=== PATIENT | male | born 1955 | race Caucasian/White ===

== ENCOUNTER 2018-01-28 04:07 | Emergency (ER) | payer BC ==
[2018-01-28] MEDS ORDERED: ASPIRIN 81 MG TABLET, CHEWABLE PO ONE (04:27)
[2018-01-28] MEDS ORDERED: NITROGLYCERIN 0.4 MG/TAB 25 TAB/BOTTLE SL PRN (04:35)
--- NOTE | 2018-01-28 04:35 | ER Document Report ---
Addendum entered and electronically signed by ERICA RÍOS DO 01/28/18 06:28 : Course - Re-evaluation Re-evalutation: 01/28/18 06:27 On reevaluation patient continues to do very well. His heart rate is 75 with sinus rhythm on a monitor. Blood pressure is 110/93. Pulse ox 100% on room air. I feel patient is stable for transport at this time. They are flying. They said this should be here in 30 minutes. Will continue closely monitor the patient. He is on heparin drip and amiodarone drip at this time. Dictation of this chart was performed using voice recognition software; therefore, there may be some unintended grammatical errors. - Vital Signs Vital signs: Temp Pulse Resp BP Pulse Ox 98.0 F 69 16 125/101 H 100 01/28/18 04:17 01/28/18 04:17 01/28/18 05:34 01/28/18 05:34 01/28/18 05:34 - Laboratory Result Diagrams: 01/28/18 04:50 01/28/18 04:50 Laboratory results interpreted by me: 01/28/18 01/28/18 04:50 04:50 RDW 14.4 H Seg Neuts % (Manual) 23 L Lymphocytes % (Manual) 66 H Metamyelocytes % 1 H Abs Lymphs (Manual) 5.4 H Sodium 146.2 H Potassium 2.6 L* Glucose 147 H Alkaline Phosphatase 27 L Original Note: ED General - General TRAVEL OUTSIDE OF THE [place] IN LAST 30 DAYS: No <STEVIE BOUDREAUX - Last Filed: 01/28/18 04:51> <ERICA RÍOS - Last Filed: 01/28/18 06:18> - General Chief Complaint: Chest Pain Stated Complaint: CHEST PAIN Time Seen by Provider: 01/28/18 04:27 - HPI Notes: Patient is a 62-year-old male with a history of hypertension and hypercholesterolemia who presents to the ED complaining of midsternal chest pain with an incident of radiating to his left arm that began about 1 hour ago. Patient states that he was diaphoretic at that time, but his symptoms have since improved. Patient states that he just has a dull ache remaining, but otherwise states that "I almost feel back to normal." Patient states that nothing improved or worsened his symptoms that he is aware of. Patient states that he is still ambulatory without any dyspnea on exertion or worsening pain. He has not had any prolonged immobilization, recent surgery/trauma, previous DVT /PE, cancer history, hormone use, or smoking history. He denies any other significant cardiopulmonary medical history or strong family history. He has been eating and drinking without any difficulties as well. Patient states that he has been taking his blood pressure medications, and usually takes him to morning and evening. Denies any headache, fever, URI, sore throat, palpitations , syncope, cough, shortness of breath, wheeze, dyspnea, abdominal pain, nausea/ vomiting/diarrhea, urinary retention, dysuria, hematuria, back pain, loss of control of bowel or bladder, numbness/tingling, or rash. (STEVIE BOUDREAUX) - Related Data Allergies/Adverse Reactions: No Known Allergies Allergy (Verified 01/28/18 05:10) Past Medical History - Social History Smoking Status: Never Smoker Family History: Reviewed & Not Pertinent <STEVIE BOUDREAUX - Last Filed: 01/28/18 04:51> Review of Systems - Review of Systems -: Yes All other systems reviewed and negative <STEVIE BOUDREAUX - Last Filed: 01/28/18 04:51> Physical Exam <STEVIE BOUDREAUX - Last Filed: 01/28/18 04:51> <ERICA RÍOS - Last Filed: 01/28/18 06:18> - Vital signs Vitals: Temp Pulse Resp BP Pulse Ox 98.0 F 69 20 171/110 H 99 01/28/18 04:17 01/28/18 04:17 01/28/18 04:17 01/28/18 04:17 01/28/18 04:17 - Notes Notes: PHYSICAL EXAMINATION: GENERAL: Well-appearing, well-nourished and in no acute distress. HEAD: Atraumatic, normocephalic. EYES: Pupils equal round and reactive to light, extraocular movements intact, sclera anicteric, conjunctiva are normal. ENT: Nares patent and without discharge. oropharynx clear without exudates. No tonsilar hypertrophy or erythema. Moist mucous membranes. NECK: Normal range of motion, supple without lymphadenopathy LUNGS: Breath sounds clear to auscultation bilaterally and equal. No wheezes rales or rhonchi. HEART: Regular rate and rhythm without murmurs, rubs, gallops. ABDOMEN: Soft, nontender, nondistended abdomen. No guarding, no rebound. No masses appreciated. Normal bowel sounds present. No CVA tenderness bilaterally. Musculoskeletal: FROM to passive/active. Strength 5+/5. Extremities: No cyanosis, clubbing, or edema b/l. Peripheral pulses 2+. Capillary refill less than 3 seconds. NEUROLOGICAL: Cranial nerves grossly intact. Normal speech, normal gait. Normal sensory, motor exams PSYCH: Normal mood, normal affect. SKIN: Warm, Dry, normal turgor, no rashes or lesions noted. (STEVIE BOUDREAUX) Course <STEVIE BOUDREAUX - Last Filed: 01/28/18 04:51> - Laboratory Result Diagrams: 01/28/18 04:50 01/28/18 04:50 <ERICA RÍOS - Last Filed: 01/28/18 06:18> - Re-evaluation Re-evalutation: 01/28/18 04:51 Within 2minutes of leaving his room, pt went into V-tach and unresponsive. Dr. Ríos and I immediately went to his room where Dr. Ríos ran the code. (STEVIE BOUDREAUX) 01/28/18 04:53 Patient was initially seen by Stevie FIELDS. Patient presents because an episode of chest pain at home with diaphoresis which resolved. Patient was looking well and then suddenly went to ventricular tachycardia. Immediately went into the room with the patient went to ventricular tachycardia. He was having agonal breathing was pulseless. Immediately started CPR. Placed for pads on him and defibrillated him one time. Then restarted CPR. Approximately 2 minutes after initial defibrillation patient started to awaken and he was in sinus bradycardia. Strong pulse. Patient continued in sinus bradycardia therefore gave half milligram of epinephrine. Patient then went to a bigeminy type rhythm. Patient given 150 mg of amiodarone bolus and started him no drip. Patient is now in normal sinus rhythm without PVCs and is awake and talking and alert. Repeat EKG does not show evidence of ST elevation at this time. Patient currently denies any chest pain other than some pain over his left ribs which is reproducible palpation most likely related to the chest compressions that were just performed. Blood work is being obtained. We will keep the patient to monitor. I will call tertiary facility that has interventional cardiology for transfer. 01/28/18 05:09 I spoke with Apolinar Thompson, hospitalist at [facility], who agrees to accept the patient for transfer. He requested to give the patient Lipitor 80 mg and start him on a heparin drip as well and continue the amiodarone drip. We will arrange transport soon as we get bed assignment. Dictation of this chart was performed using voice recognition software; therefore, there may be some unintended grammatical errors. (ERICA RÍOS) - Vital Signs Vital signs: Temp Pulse Resp BP Pulse Ox 98.0 F 69 16 125/101 H 100 01/28/18 04:17 01/28/18 04:17 01/28/18 05:34 01/28/18 05:34 01/28/18 05:34 - Laboratory Laboratory results interpreted by me: 01/28/18 04:50 Sodium 146.2 H Potassium 2.6 L* Glucose 147 H Alkaline Phosphatase 27 L - EKG Interpretation by Me Additional EKG results interpreted by me: 01/28/18 04:57 EKG #1 is reviewed and interpreted by me. EKG shows sinus rhythm with rate of [address] segment elevation or depression. No ischemic T-wave inversions. NH interval, QRS duration, QTc intervals are within normal range. EKG #2 is reviewed and interpreted by me. EKG #2 is post cardiac arrest. EKG shows sinus rhythm with rate of [address] segment elevation or depression. No ischemic T-wave inversions. NH interval, QRS duration, QTc intervals are within normal range. (ERICA RÍOS) Procedures - Additional Procedures IO placement Additional Procedures: IO insertion <ERICA RÍOS - Last Filed: 01/28/18 06:18> - Additional Procedures IO placement Notes: 01/28/18 06:17 I-O inserted in the left anterior tibia for IV access patient did not have any peripheral axis and the patient went into cardiac arrest. I-O flushed well after placement. No complications (ERICA RÍOS) Critical Care Note <STEVIE BOUDREAUX - Last Filed: 01/28/18 04:51> - Critical Care Note Total time excluding time spent on procedures (mins): 40 <ERICA RÍOS - Last Filed: 01/28/18 06:18> - Critical Care Note Comments: Critical care time for this patient is approximately 40 minutes not including time spent on procedures due to management of cardiac arrest, management of V. tach, postresuscitation care. (ERICA RÍOS) Discharge <STEVIE BOUDREAUX - Last Filed: 01/28/18 04:51> <ERICA RÍOS - Last Filed: 01/28/18 06:18> - Discharge Clinical Impression: Ventricular tachycardia, Cardiac arrest, Hypokalemia Chest pain Qualifiers: Chest pain type: unspecified Qualified Code(s): R07.9 - Chest pain, unspecified Condition: Stable Disposition: [facility]
[2018-01-28] MEDS ORDERED: DEXTROSE 5%-WATER 500 ML with AMIODARONE HCL 900 MG IV PRN ×2 (04:50)
[2018-01-28] MEDS ORDERED: AMIODARONE HCL 150 MG in DEXTROSE 5%-WATER 100 ML IV ONE (04:50)
[2018-01-28] MEDS ORDERED: EPINEPHRINE INJ 1 MG/10 ML DISP.SYRIN IV ONE (04:52)
--- NOTE | 2018-01-28 04:53 | ER Document Report ---
ED General - General Chief Complaint: Chest Pain Stated Complaint: CHEST PAIN Time Seen by Provider: 01/28/18 04:27 TRAVEL OUTSIDE OF THE [place] IN LAST 30 DAYS: No Past Medical History - Social History Smoking Status: Never Smoker Family History: Reviewed & Not Pertinent Patient has suicidal ideation: No Patient has homicidal ideation: No Renal/ Medical History: Denies: Hx Peritoneal Dialysis Physical Exam - Vital signs Vitals: Temp Pulse Resp BP Pulse Ox 98.0 F 69 20 171/110 H 99 01/28/18 04:17 01/28/18 04:17 01/28/18 04:17 01/28/18 04:17 01/28/18 04:17 Course - Vital Signs Vital signs: Temp Pulse Resp BP Pulse Ox 98.0 F 69 20 171/110 H 100 01/28/18 04:17 01/28/18 04:17 01/28/18 04:17 01/28/18 04:17 01/28/18 04:27 - EKG Interpretation by Me Additional EKG results interpreted by me: 01/28/18 04:52 01/28/18 04:57
[2018-01-28] MEDS ORDERED: HEPARIN SODIUM,PORCINE/D5W 25,000 UNIT/250 ML RTUINJ IV PRN (05:08)
[2018-01-28] MEDS ORDERED: ATORVASTATIN CALCIUM 80 MG TABLET PO ONE (05:08)
[2018-01-28] MEDS ORDERED: HEPARIN SOD (PORCINE) 1,000 UNIT/ML 10 ML VIAL IV ONE (05:08)
--- NOTE | 2018-01-28 05:18 | RADIOLOGY REPORT (SQ) ---
Clinical History : chest pain , Exam : Portable AP view of the chest 01/28/2018 4:27 AM CDT Comparisons : none Findings : The lungs are clear without focal consolidation or pleural effusion. The heart is normal in size. The mediastinal contours are normal in appearance. The thoracic spine is age appropriate. The shoulders are unremarkable. Limited evaluation of the upper abdomen demonstrates no gross abnormalities. Impression: No acute cardiopulmonary disease
[2018-01-28 05:20] LABS: INTERNATIONAL RATION (INR) 0.94; PROTHROMBIN TIME 13.1 SEC (11.4-15.4)
[2018-01-28 05:35] LABS: ALANINE AMINOTRANSFERASE 60 U/L (21-72); ALBUMIN 4.3 g/dL (3.5-5.0); ALKALINE PHOSPHATASE 27 U/L (38-126); ANION GAP 17 (5-19); ASPARTATE AMINO TRANSFERASE 44 U/L (17-59); BILIRUBIN,DIRECT 0.4 mg/dL (0.0-0.4); BILIRUBIN,TOTAL 0.4 mg/dL (0.2-1.3); BLOOD UREA NITROGEN 19 mg/dL (7-20); CALCIUM 9.8 mg/dL (8.4-10.2); CARBON DIOXIDE 23 mmol/L (22-30); CHLORIDE 106 mmol/L (98-107); CREATINE KINASE 125 U/L (55-170); GLUCOSE 147 mg/dL (75-110); SODIUM 146.2 mmol/L (137-145); TOTAL PROTEIN 7.3 g/dL (6.3-8.2)
[2018-01-28 05:41] LABS: POTASSIUM 2.6 mmol/L (3.6-5.0)
[2018-01-28] MEDS ORDERED: POTASSIUM CHLORIDE 10 MEQ CAPSULE.ER PO ONE (05:43)
[2018-01-28 05:44] LABS: CREATINE KINASE MB 2.06 ng/mL (<4.55)
[2018-01-28 05:50] LABS: TROPONIN I 0.126 ng/mL
[2018-01-28 05:54] LABS: HEMOGLOBIN 15.1 g/dL (13.5-17.0); MEAN CORPUSCULAR HEMOGLOBIN 28.6 pg (27.0-33.4); MEAN CORPUSCULAR HGB CONC 33.6 g/dL (32.0-36.0); MEAN CORPUSCULAR VOLUME 85 fl (80-97); PLATELET COUNT 289 10^3/uL (150-450); RED BLOOD COUNT 5.29 10^6/uL (4.35-5.55); RED CELL DISTRIBUTION WIDTH 14.4 % (11.5-14.0)
[2018-01-28] MEDS: MAGNESIUM SULFATE/D5W 1 GM/100 ML RTUPB IV SCH ×2 (05:56→07:12)
[2018-01-28] MEDS: POTASSI CL 20 MEQ/50 ML RIDER 20 MEQ/50 ML RTUPB IV SCH ×2 (05:57→08:12)
[2018-01-28 06:17] LABS: ABSOLUTE LYMPHOCYTES# (MANUAL) 5.4 10^3/uL (0.5-4.7); ABSOLUTE MONOCYTES # (MANUAL) 0.4 10^3/uL (0.1-1.4); ABSOLUTE NEUTROPHILS# (MANUAL) 1.9 10^3/uL (1.7-8.2); BASOPHILS % (MANUAL) 0 % (0-2); EOSINOPHILS % (MANUAL) 3 % (0-6); METAMYELOCYTES % (MANUAL) 1 % (0); MONOCYTES % (MANUAL) 5 % (3-13); SEGMENTED NEUTROPHILS % (MAN) 23 % (42-78); TOTAL CELLS COUNTED 100
[2018-01-28 06:18] LABS: PLATELET COMMENT ADEQUATE; RBC MORPHOLOGY COMMENT NORMO-CYTIC/CHROMIC
[2018-01-28 06:23] LABS: LYMPHOCYTES % (MANUAL) 66 % (13-45)
--- NOTE | 2018-01-28 06:30 | ER Document Report ---
Doctor's Note Notes: 01/28/18 06:30 Pt stable at this time, elevated trop noted, awaiting flight
--- NOTE | 2018-01-28 07:57 | EKG REPORT ---
SEVERITY:- ABNORMAL ECG - ECTOPIC ATRIAL RHYTHM BORDERLINE LEFT AXIS DEVIATION MINIMAL ST DEPRESSION, ANTERIOR LEADS : Confirmed by: Jon Chase MD 28-Jan-2018 07:56:35
--- NOTE | 2018-01-28 07:57 | EKG REPORT ---
SEVERITY:- BORDERLINE ECG - SINUS RHYTHM LEFT AXIS DEVIATION : Confirmed by: Jon Chase MD 28-Jan-2018 07:57:07
[2018-01-28 09:10] VITALS: BP 125/97
[2018-01-28] MEDS ORDERED: AMIODARONE HCL INJ 150 MG/3 ML VIAL IV ONE (11:17)
[2018-01-28] MEDS ORDERED: ATROPINE SULFATE INJ 1 MG/10 ML DISP.SYRIN IV ONE (11:17)
[2018-01-28] MEDS ORDERED: EPINEPHRINE INJ 1 MG/10 ML DISP.SYRIN ONE (11:17)
[2018-01-29 14:57] LABS: PATH REVIEW PATHOLOGIST REVIEWED
== END 2018-01-28 09:34 | disposition short-term general hospital (02) ==
LOC: ER 04:07
DX: I46.9 Cardiac arrest, cause unspecified (principal); I47.2 Ventricular tachycardia; E87.6 Hypokalemia; R07.9 Chest pain, unspecified; E78.00 Pure hypercholesterolemia, unspecified; I10 Essential (primary) hypertension
CPT/HCPCS: 93005; 96376; 99291; 92950; 96375; 96365; 96366; 96368; 36415; 82553; 82550; 83735; 85025; 85610; 85730; 80053; 84484; 83880; 71045; 93010; J1644 ×2; J0461; J0171; J3475; J3480; J7060; J0282